=== PATIENT | female | born 1995 | race Two or more races ===

== ENCOUNTER 2023-11-12 19:00 | Emergency (ER) | payer OTHER ==
[~2023-11-12] VITALS: Ht 154.9 cm; Wt 100.2 kg
[2023-11-12] MEDS ORDERED: CEFTRIAXONE SODIUM 1,000 MG VIAL IM STA (22:34)
[2023-11-12] MEDS ORDERED: METHYLPREDNISOLONE SOD SUCC 125 MG VIAL IM STA (22:34)
[2023-11-12] MEDS ORDERED: GUAIFENESIN 200 MG/10 ML BLIST.PACK PO STA (22:35)
== END 2023-11-12 22:50 | disposition home or self-care (01) ==
LOC: ER 19:00
DX: J32.9 Chronic sinusitis, unspecified (principal); R05.9 Cough, unspecified; Z20.822 Contact with and (suspected) exposure to COVID-19; Z88.1 Allergy status to other antibiotic agents